=== PATIENT | female | born 1960 | race African-American/Black ===

== ENCOUNTER 2017-01-04 21:01 | Emergency (ER) | payer OTHER ==
[~2017-01-04] VITALS: Ht 162.6 cm; Wt 88.9 kg
[~2017-01-04 21:01] MED LIST: AMLO10TA2 PO; LEVO125T PO; LEVO150T PO; LEVO750T31 PO; LISI40TA PO; OXYB5TAB PO; PANT40TA5 PO
[2017-01-04 22:26] VITALS: BP 152/94
--- NOTE | 2017-01-04 22:33 | RAD ---
CT HEAD AND CERVICAL SPINE WO dated 01/04/2017 9:40 PM History: Fall one day ago, headache, neck pain Technique: Noncontrast CT imaging was performed of the head and cervical spine. Multiplanar reconstruction images are submitted. Exposure: One or more of the following individualized dose reduction techniques were utilized for this examination: 1. Automated exposure control 2. Adjustment of the mA and/or kV according to patient size 3. Use of iterative reconstruction technique. Head CT Comparison: None Findings: There is some motion degradation. No acute extra-axial or parenchymal hemorrhage is identified. There is no significant intra-axial mass effect, midline shift, or extra-axial fluid collection. The jenkins-white differentiation of the major vascular territories is preserved. The ventricles, sulci, and cisterns are within normal limits in size and configuration. The mastoid air cells and the visualized paranasal sinuses are aerated. There is no significant focal calvarial abnormality. Impression: 1. No convincing acute intracranial abnormality is identified. Cervical spine CT Comparison: None Findings: No acute cervical spine fracture is identified. Vertebral body stature and AP alignment are within normal limits. Atlanto-axial distance is within normal limits. There is appropriate alignment of lateral masses of C1 relative to C2. Occipital condylar-C1 relationship is maintained. Impression: 1. No acute cervical spine fracture is identified. Electronically signed by: Edmundo Noble MD (01/04/2017 10:29 PM)
--- NOTE | 2017-01-04 23:09 | PHYS DOC ---
Past Medical History Past Medical History: Diabetes-Type II, GERD, Hypertension, Hypothyroid Past Surgical History: , Hysterectomy, Other Additional Past Surgical Histo: lap band Alcohol Use: None Drug Use: None Adult General Chief Complaint Chief Complaint: MECHANICAL FALL HPI HPI Patient is a 56 year old female who presents with pain after a fall. States yesterday afternoon she experienced mechanical fall after slipping on a bag of soil. She fell backwards hitting her head on the ground with brief loss of consciousness. She now complains of headache, neck pain, right shoulder & right forearm pain. She is right handed. Denies vision changes, vomiting, extremity numbness/weakness. Denies use of blood thinners. No syncope as contributing factor in fall. PCP is Dr. Haywood. Review of Systems Review of Systems Constitutional: Denies fever or chills Eyes: Denies change in visual acuity HENT: Denies nasal congestion or sore throat Respiratory: Denies cough or shortness of breath Cardiovascular: Denies chest pain or edema GI: Denies abdominal pain, nausea, vomiting Musculoskeletal: Denies back pain, reports upper extremity pain & neck pain Integument: Denies rash or skin lesions Neurologic: Reports headache, denies focal weakness or sensory changes Allergies Allergies Allergies Coded Allergies Type Severity Reaction Last Updated Verified No Known Drug Allergies 08/26/13 No Physical Exam Physical Exam Constitutional: obese, no acute distress, non-toxic appearance. HENT: Normocephalic, atraumatic, bilateral external ears normal, oropharynx moist, nose normal. Eyes: PERRLA, EOMI, conjunctiva normal, no discharge. Neck: supple, no stridor. +midline c-spine tenderness C5-C7 no step offs Cardiovascular: RRR, no murmurs, no edema. Lungs & Thorax: LCTAB, no wheezing, no respiratory distress. Abdomen: soft, nontender, nondistended. Skin: Warm, dry, no erythema, no rash. Back: No thoracic or lumbar spinal tenderness. Extremities: RUE generalized shoulder & forearm tenderness without deformity, no elbow or wrist tenderness, normal ROM at shoulder, elbow, wrist, radial pulse 2+, axillary nerve sensation intact, radial/median/ulnar nerve sensory & motor function intact. Neurologic: Alert and oriented X 3, CN2-12 grossly intact, symmetric strength/ sensation to UE & LE, no focal deficits noted. Psychologic: Affect normal, judgement normal, mood normal. Current Patient Data Vital Signs Vital Signs Date Time Temp Pulse Resp B/P (MAP) Pulse Ox O2 Delivery O2 Flow Rate FiO2 01/04/17 22:26 86 16 152/94 (113) 96 Room Air 01/04/17 21:10 98.9 98.9 EKG EKG [] Radiology/Procedures Radiology/Procedures XR R forearm: interpreted by me: no fracture or dislocation XR R shoulder: interpreted by me: no fracture or dislocation PROCEDURE: CT HEAD AND CERVICAL SPINE WO CT HEAD AND CERVICAL SPINE WO dated 01/04/2017 9:40 PM History: Fall one day ago, headache, neck pain Technique: Noncontrast CT imaging was performed of the head and cervical spine. Multiplanar reconstruction images are submitted. Exposure: One or more of the following individualized dose reduction techniques were utilized for this examination: 1. Automated exposure control 2. Adjustment of the mA and/or kV according to patient size 3. Use of iterative reconstruction technique. Head CT Comparison: None Findings: There is some motion degradation. No acute extra-axial or parenchymal hemorrhage is identified. There is no significant intra-axial mass effect, midline shift, or extra-axial fluid collection. The jenkins-white differentiation of the major vascular territories is preserved. The ventricles, sulci, and cisterns are within normal limits in size and configuration. The mastoid air cells and the visualized paranasal sinuses are aerated. There is no significant focal calvarial abnormality. Impression: 1. No convincing acute intracranial abnormality is identified. Cervical spine CT Comparison: None Findings: No acute cervical spine fracture is identified. Vertebral body stature and AP alignment are within normal limits. Atlanto-axial distance is within normal limits. There is appropriate alignment of lateral masses of C1 relative to C2. Occipital condylar-C1 relationship is maintained. Impression: 1. No acute cervical spine fracture is identified. Electronically signed by: Ciera Preciado MD (01/04/2017 10:29 PM) DICTATED and SIGNED BY: CIERA PRECIADO MD DATE: 01/04/17 222[] Course & Med Decision Making Course & Med Decision Making Pertinent Labs and Imaging studies reviewed. (See chart for details) The patient presents with pain after a mechanical fall. She had neck tenderness , c-collar placed. She declined pain meds. Imaging shows no serious injury. C -collar clinically cleared by me. She was comforted by results & wanted to go home. Recommend tylenol or ibuprofen for pain, use ice packs or heating pad, do range of motion exercises. Follow up with PCP in 2-3 days if not improving. Come back for altered mental status, focal neuro deficit, ataxia or dysphasia , uncontrolled vomiting, any otherwise worsening condition. Discharged home in stable condition. [] Dragon Disclaimer Dragon Disclaimer This electronic medical record was generated, in whole or in part, using a voice recognition dictation system. Departure Departure Impression: Primary Impression: Head injury Additional Impression: Upper extremity pain Disposition: HOME, SELF-CARE Condition: STABLE Referrals: REYNOLD HAYWOOD MD (PCP) Patient Instructions: Head Injury, Adult, [id number] Additional Instructions: You were seen in the emergency department today for injuries after a fall. Tests here did not show any serious injury. Please rest, apply ice packs, make sure to move shoulder to prevent frozen joint. Take Tylenol or ibuprofen as needed for pain. Follow-up with primary care physician in 2-3 days if not improving. Return to the emergency department for confusion, difficulty walking or talking, uncontrolled vomiting, numbness or weakness in arms or legs, any otherwise worsening condition. Problem Qualifiers ADOLPH MORTON MD January 04, 2017 23:09
--- NOTE | 2017-01-05 08:01 | RAD ---
Indication fall. Pain. AP and lateral views of the right forearm were obtained. No bony abnormality is seen.
--- NOTE | 2017-01-05 08:03 | RAD ---
Indication fall, pain. Internally and externally rotated views of the right shoulder as well as a Y view were obtained. There are some degenerative changes at the AC joint. No fracture or acute finding is seen. IMPRESSION: No acute bony finding
== END 2017-01-04 23:27 | disposition home or self-care (01) ==
LOC: ER 21:01
DX: S09.90XA Unspecified injury of head, initial encounter (principal); M79.631 Pain in right forearm; M25.511 Pain in right shoulder; E11.9 Type 2 diabetes mellitus without complications; K21.9 Gastro-esophageal reflux disease without esophagitis; I10 Essential (primary) hypertension; E03.9 Hypothyroidism, unspecified; W01.198A Fall on same level from slipping, tripping and stumbling with subsequent striking against other object, initial encounter; Y93.89 Activity, other specified; Y92.89 Other specified places as the place of occurrence of the external cause; Y99.8 Other external cause status
CPT/HCPCS: 70450; 72125; 73030; 73090; 99284-25

== ENCOUNTER → 2017-05-31 | Outpatient (CLI) | payer OTHER ==
--- NOTE | 2017-06-01 09:25 | SLEEP ---
DATE OF STUDY: 05/31/2017 ATTENDING PHYSICIAN: Reynold Montoya MD. The patient is 57 years old who weighs 195 pounds with a BMI of 33. The patient's Berkey score was 5. A split night study was performed at [facility]. During the night study, the patient spent 429 minutes in bed and slept for 381 minutes with a sleep efficiency of 89%. Sleep latency was 9 minutes with a REM latency of 101 minutes. Overall, sleep architecture showed increased stage I sleep, normal stage II sleep, normal slow wave and reduced REM sleep. During the initial diagnostic portion of the study, the patient slept for 144 minutes. During this time, there were 5 obstructive apneas, 3 mixed and no central apneas. There were 99 hypopneas. The patient's apnea-hypopnea index was 45 per hour, supine index 25 per hour and a REM index of 94 per hour. EKG monitoring revealed normal sinus rhythm, average heart rate was 78 beats per minute. No sustained arrhythmias were observed. Nocturnal oximetry study revealed a mean oxygen saturation of 98% with the lowest of 72%. 16% of time, oxygen saturation remained between 80% and 89%. PLMs were seen at index of 7 per hour and 1 per hour caused EEG arousals. The patient met the criteria for CPAP initiation. It was started at 5 cm of water, titrated up to 14 cm of water. At the final pressure, the patient spent 47 minutes. The patient had supine as well as REM sleep. The patient's AHI was reduced to 1 per hour and oxygen saturation remained above 93%. The patient used medium size nasal pillows. IMPRESSION: 1. Severe sleep apnea-hypopnea syndrome with an AHI of 45 per hour. 2. Nocturnal hypoxia secondary to obstructive sleep apnea, but resolved with CPAP. 3. No clinically significant PLMs. RECOMMENDATIONS: 1. CPAP at 14 cm of water completely eliminated the patient's sleep apnea and should be used on a nightly basis. 2. Follow up in 4-6 weeks to assess compliance with CPAP and to document clinical improvement. 3. Weight loss is strongly advised. 4. Avoid CRUSHER SETTER depressants. 5. Caution regarding driving until symptoms of sleep apnea resolve with the use of CPAP. CHRISSIE OCHOA MD DR: JOAN/santino JOB#: [id number] / [id number] REYNOLD Cerda MD
== END | disposition home or self-care (01) ==
LOC: RT 18:37
PROVIDERS: ATTEND Internal Medicine
DX: G47.33 Obstructive sleep apnea (adult) (pediatric) (principal)
CPT/HCPCS: 95810

== ENCOUNTER → 2018-06-21 | Outpatient (CLI) | payer OTHER ==
[~2018-06-21] MED LIST changes: -AMLO10TA2 PO; +AMLO10TA6 PO; +LISI-130 PO; -LISI40TA PO
--- NOTE | 2018-06-21 09:22 | RAD ---
Examination: THYROID ULTRASOUND History: ENLARGED THYROID Comparison/Correlation: None Findings: Thyroid ultrasound exam was performed. Right thyroid lobe measures 4.1 cm x 1.3 cm x 1.5 cm. Left thyroid lobe measures 2.1 cm x 1 cm x 1.2 cm. Normal flow involving the thyroid gland is evident on color Doppler imaging. There is no mass or suspicious cyst. Thyroid isthmus measures 0.4 cm anteroposterior. Echotexture of the thyroid gland is normal. Impression: Normal thyroid ultrasound exam. Electronically signed by: Benny Boone MD (06/21/2018 9:19 AM) [facility]
--- NOTE | 2018-06-21 13:32 | RAD ---
DATE: 06/21/2018 EXAM: MAMMO BETO SCREENING BILATERAL HISTORY: Routine screening. Benign left breast biopsies in the past. COMPARISON: 10/30/2009 screen mammographic exam This study was interpreted with the benefit of Computerized Aided Detection (CAD). Breast Density: SCATTERED The breast parenchyma shows scattered fibroglandular densities. Breast parenchyma level B. FINDINGS: Benign axillary lymph nodes are present bilaterally. No suspicious calcification clusters or distortion. No mass lesions. IMPRESSION: Normal BI-RADS CATEGORY: 2 BENIGN FINDING(S) RECOMMENDED FOLLOW-UP: 12M 12 MONTH FOLLOW-UP PQRS compliance statement: Patient information was entered into a reminder system with a target due date in 1 year for the next mammogram. Mammography is a sensitive method for finding small breast cancers, but it does not detect them all and is not a substitute for careful clinical examination. A negative mammogram does not negate a clinically suspicious finding and should not result in delay in biopsying a clinically suspicious abnormality. "Our facility is accredited by the [employer] Mammography Program."
== END | disposition home or self-care (01) ==
LOC: US 07:39
PROVIDERS: ATTEND Family Medicine
DX: Z12.31 Encounter for screening mammogram for malignant neoplasm of breast (principal); E04.8 Other specified nontoxic goiter
CPT/HCPCS: 76536; 77063; 77067

== ENCOUNTER → 2019-10-25 | Outpatient (CLI) | payer OTHER ==
[~2019-10-25] MED LIST changes: -AMLO10TA6 PO; +AMLO10TA8 PO; +OXYB-36 PO; -OXYB5TAB PO; -PANT40TA5 PO; +PANT40TA77 PO
[2019-10-25 08:48] LABS: HEMATOCRIT 35.2 % (36.0-47.0); HEMOGLOBIN 11.4 g/dL (12.0-15.5); RED BLOOD COUNT 4.53 x10^6/uL (3.50-5.40); RED CELL DISTRIBUTION WIDTH 15.6 % (11.5-14.5); WHITE BLOOD COUNT 5.1 x10^3/uL (4.0-11.0)
[2019-10-25 09:17] LABS: ALBUMIN 3.6 g/dL (3.4-5.0); ALBUMIN/GLOBULIN RATIO 0.8 (1.0-1.7); CHOLESTEROL/HDL RATIO 3.1; GFR 69.1; TOTAL BILIRUBIN 0.4 mg/dL (0.2-1.0); TOTAL PROTEIN 7.9 g/dL (6.4-8.2)
[2019-10-25 09:19] LABS: FREE T4 0.92 ng/dL (0.76-1.46); THYROID STIM HORMONE (TSH) 6.879 uIU/mL (0.358-3.74)
[2019-10-25 20:08] LABS: HEMOGLOBIN A1C 6.1 % (4.8-5.6)
== END | disposition home or self-care (01) ==
LOC: LAB 08:16
PROVIDERS: ATTEND Nurse Practitioner Gerontology
DX: E78.01 Familial hypercholesterolemia (principal); I10 Essential (primary) hypertension; E03.9 Hypothyroidism, unspecified; E11.40 Type 2 diabetes mellitus with diabetic neuropathy, unspecified
CPT/HCPCS: 36415; 80053; 80061; 83036; 84439; 84443; 85027

== ENCOUNTER → 2020-01-19 | Outpatient (CLI) | payer OTHER | END | disposition home or self-care (01) | LOC: LAB 16:16 | PROVIDERS: ATTEND Internal Medicine Pulmonary Disease | DX: Z03.818 Encounter for observation for suspected exposure to other biological agents ruled out (principal) | CPT/HCPCS: 36415; U0003 ==

== ENCOUNTER → 2020-07-09 | Outpatient (CLI) | payer OTHER ==
[~2020-07-09] MED LIST changes: +AMLO-187 PO; -AMLO10TA8 PO
== END ==
LOC: LAB 08:56
PROVIDERS: ATTEND Internal Medicine Pulmonary Disease
DX: U07.1 COVID-19 (principal); R09.81 Nasal congestion; R68.89 Other general symptoms and signs
CPT/HCPCS: U0003

== ENCOUNTER 2020-11-20 10:39 | Emergency (ER) | payer OTHER ==
[~2020-11-20] VITALS: Ht 160 cm; Wt 89.0 kg
[2020-11-20] MEDS: ONDANSETRON PF 4 MG/2 ML VIAL. IVP ONE (11:26)
[2020-11-20] MEDS: IV NORMAL SALINE 1000ML BAG 1,000 ML IV ONE (11:26)
[2020-11-20] MEDS: FAMOTIDINE 20 MG/2 ML VIAL IVP ONE (11:27)
--- NOTE | 2020-11-20 11:28 | EKG ---
[facility] [address] [place] [address] Test Date: 2020-11-20 Test Time: 11:22:06 Pat Name: RAI ALONSO Department: Room: Gender: F [employer] Supervisor: : [id number] Requested By: BARBARA GRIGSBY Order Number: [id number] Reading MD: Measurements Intervals [place] Rate: 96 P: 56 PA: 138 QRS: 44 QRSD: 82 T: 34 QT: 342 QTc: 433 Interpretive Statements SINUS RHYTHM NORMAL ECG RI6.02 No previous ECG available for comparison
[2020-11-20 11:32] LABS: BILIRUBIN,URINE NEGATIVE (NEG); CLARITY,URINE CLEAR; COLOR,URINE YELLOW; NITRITE,URINE NEGATIVE (NEG); PROTEIN,URINE NEGATIVE (NEG-TRACE); UROBILINOGEN,URINE 0.2 mg/dL (0.2 mg/dL)
[2020-11-20 11:34] LABS: BASO # 0.1 x10^3/uL (0.0-0.2); BASO % 1 % (0-3); EOS # 0.1 x10^3/uL (0.0-0.7); EOS % 1 % (0-3); HEMATOCRIT 35.5 % (36.0-47.0); HEMOGLOBIN 11.5 g/dL (12.0-15.5); LYMPH # 1.5 x10^3/uL (1.0-4.8); LYMPH % 15 % (24-48); MEAN CORPUSCULAR HEMOGLOBIN 25 pg (25-35); MEAN CORPUSCULAR HGB CONC 32 g/dL (31-37); MEAN CORPUSCULAR VOLUME 78 fL (79-100); MONO # 0.7 x10^3/uL (0.0-1.1); MONO % 7 % (0-9); NEUT # 7.8 x10^3/uL (1.8-7.7); NEUT % 76 % (31-73); PLATELET COUNT 296 x10^3/uL (140-400); RED BLOOD COUNT 4.53 x10^6/uL (3.50-5.40); RED CELL DISTRIBUTION WIDTH 14.5 % (11.5-14.5); WHITE BLOOD COUNT 10.2 x10^3/uL (4.0-11.0)
[2020-11-20 11:44] LABS: CALCIUM 9.3 mg/dL (8.5-10.1); GFR 68.9; POTASSIUM 3.8 mmol/L (3.5-5.1)
[2020-11-20 11:51] LABS: ALBUMIN 3.6 g/dL (3.4-5.0); ALBUMIN/GLOBULIN RATIO 0.8 (1.0-1.7); MAGNESIUM 2.1 mg/dL (1.8-2.4); TOTAL BILIRUBIN 0.3 mg/dL (0.2-1.0); TOTAL PROTEIN 8.1 g/dL (6.4-8.2)
[2020-11-20 12:01] LABS: BACTERIA,URINE 0 /HPF (0-FEW); RBC,URINE 0 /HPF (0-2); WBC,URINE 0 /HPF (0-4)
[2020-11-20] MEDS: IOHEXOL 350 MG/ML 100 ML VIAL. IV ONE (12:13)
--- NOTE | 2020-11-20 12:56 | RAD ---
EXAM: CT CHEST, ABDOMEN, AND PELVIS WITHOUT CONTRAST INDICATION: Coughing up blood, rectal bleeding COMPARISON: None TECHNIQUE: Helical CT imaging performed of the chest, abdomen and pelvis without the use of intraveno us contrast. Sagittal and coronal reformats were obtained. One or more of the following individualized dose reduction techniques were utilized for this examinat ion: 1. Automated exposure control 2. Adjustment of the mA and/or kV according to patient size 3. Use of iterative reconstruction technique. FINDINGS: CHEST: Thyroid gland and thoracic inlet: Thyroid gland is heterogeneous. Heart and great vessels: The heart is normal in size. No pericardial effusion. Thoracic aorta is norm al in caliber. The pulmonary arteries are clear. Mediastinum and wai: No mediastinal or hilar lymphadenopathy. There is fluid in the esophagus. Small hiatal hernia. Lungs and pleura: A few groundglass opacities and tree-in-bud nodules in the upper lobes. Motion nadir fact in the lung bases. No pleural effusion. Chest wall and axillae: No axillary lymphadenopathy. Bones: No acute osseous abnormality. ABDOMEN AND PELVIS: Liver: No focal lesion Gallbladder/Biliary Tree: Normal. Pancreas: Normal. Spleen: Normal. Adrenal Glands: Normal. Kidneys/Ureters/Bladder: There is right nephrolithiasis. No hydronephrosis. Kidneys enhance symmetric ally. Ureters and bladder are normal. Reproductive Organs: Uterus is surgically absent. No adnexal mass. Stomach, small bowel, and colon: Gastric lap band is in place and unchanged in orientation. No small bowel obstruction. There is a hyperattenuating nodule or eccentric wall thickening in the cecum (imag e 51, series 5; image 22, series 9) measuring approximately 1 x 1 cm. Vasculature: Abdominal aorta is normal in caliber. Mild calcified aortic atherosclerosis. Lymph Nodes: Small mesenteric lymph nodes with surrounding slightly ariana mesentery. Peritoneum and retroperitoneum: No free fluid or free air. Bones: No acute osseous abnormality. IMPRESSION: 1. No acute pulmonary embolism. 2. re are few small groundglass opacities and tree-in-bud nodules in the upper lobes, likely infectio us or inflammatory. Consider follow-up CT to ensure resolution after treatment. 3.1 cm hyperdense mural nodule or focal thickening in the cecum. Correlate with colonoscopy. 4. Right nephrolithiasis. 5. Gastric lap band. Small hiatal hernia. Fluid in the esophagus. 6. Mesenteric lymph nodes with ariana mesentery. Nonspecific and could be due to mesenteric panniculit is, mesenteric edema or sequela of prior surgery. Electronically signed by: Dinorah Johnson MD (11/20/2020 12:53 PM) [id number]
[2020-11-20 14:09] LABS: FECAL OB PT NEGATIVE (NEG)
[2020-11-20 14:50] VITALS: BP 148/93
--- NOTE | 2020-11-20 15:15 | PHYS DOC ---
Past Medical History Past Medical History: Diabetes-Type II, GERD, Hypertension, Hypothyroid (BARBARA GRIGSBY CURING OV[employer] TENDER) Past Surgical History: , Hysterectomy, Other Additional Past Surgical Histo: lap band (BARBARA GRIGSBY [employer]ING [employer]ENDER) Smoking Status: Former Smoker Alcohol Use: None Drug Use: None (BARBARA GRIGSBY [employer]ING [employer] TENDER) General Adult EDM: Chief Complaint: MULTIPLE COMPLAINTS HPI: HPI: Patient is a 60 year old female with a history of diabetes type 2, hypertension, high cholesterol, acid reflux, stomach ulcer, who presents to the ED today complaining of coughing up blood one time today as well as blood in her stool X1 today. Patient denies any abdominal pain, nausea, vomiting. Denies any chest pain, shortness of breath. She states she received all her doses of more than a Covid vaccine recently. She is also complaining of 7 out of 10 sharp intermittent pain between her shoulder blades since this morning. Denies any injuries. Denies anything specifically exacerbating or relieving her pain. Patient denies taking any blood thinners or NSAIDs (BARBARA GRIGSBY [employer]ING OV[employer] TENDER) Review of Systems: Review of Systems: Constitutional: Denies fever or chills. [] Eyes: Denies change in visual acuity. [] HENT: Denies nasal congestion or sore throat. [] Respiratory: Reports coughing up blood. Denies cough or shortness of breath. [] Cardiovascular: Denies chest pain or edema. [] GI: Reports bloody stool. Denies abdominal pain, nausea, vomiting, bloody stools : Denies dysuria. [] Musculoskeletal: Reports pain between her shoulder blades. Denies back pain or joint pain. [] Integument: Denies rash. [] Neurologic: Denies headache, focal weakness or sensory changes. [] Psychiatric: Denies depression or anxiety. [] (BARBARA GRIGSBY [employer]ING [employer] TENDER) Heart Score: C/O Chest Pain: N/A Risk Factors: Risk Factors: DM, Current or recent (<one month) smoker, HTN, HLP, family history of CAD, obesity. Risk Scores: Score 0 - 3: 2.5% MACE over next 6 weeks - Discharge Home Score 4 - 6: 20.3% MACE over next 6 weeks - Admit for Clinical Observation Score 7 - 10: 72.7% MACE over next 6 weeks - Early Invasive Strategies (BARBARA GRIGSBY [employer]ING [employer] TENDER) Current Medications: Current Medications Medications (Trade) Dose Ordered Sig/Daniel Start Time Stop Time Status Last Admin Dose Admin Famotidine (Pepcid Vial) 20 mg 1X ONCE 11/20/20 11:15 11/20/20 11:16 DC 11/20/20 11:27 20 MG Iohexol (Omnipaque 350 Mg/ml) 100 ml 1X ONCE 11/20/20 12:00 11/20/20 12:01 DC 11/20/20 12:13 100 ML Ondansetron HCl (Zofran) 4 mg 1X ONCE 11/20/20 11:15 11/20/20 11:16 DC 11/20/20 11:26 4 MG Sodium Chloride 1,000 ml @ 1,000 mls/hr 1X ONCE 11/20/20 11:15 11/20/20 12:14 DC 11/20/20 11:26 1,000 MLS/HR (BARBARA GRIGSBY [employer]ING [employer]ENDER) Allergies: Allergies: Allergies Coded Allergies Type Severity Reaction Last Updated Verified No Known Drug Allergies 08/26/13 No (BARBARA GRIGSBY [employer]ING [employer]ENDER) Physical Exam: PE: Constitutional: Well developed, well nourished, no acute distress, non-toxic appearance. [] HENT: Normocephalic, atraumatic, bilateral external ears normal, oropharynx moist, no oral exudates, nose normal. [] Eyes: PERRLA, EOMI, conjunctiva normal, no discharge. [] Neck: Normal range of motion, no tenderness, supple, no stridor. [] Cardiovascular:Heart rate regular rhythm, no murmur [] Lungs & Thorax: Bilateral breath sounds clear to auscultation [] Abdomen: Bowel sounds normal, soft, no tenderness, no masses, no pulsatile masses. [] Skin: Warm, dry, no erythema, no rash. [] Back: No tenderness, no CVA tenderness. [] Extremities: No tenderness, no cyanosis, no clubbing, ROM intact, no edema. [] Neurologic: Alert and oriented X 3, normal motor function, normal sensory function, no focal deficits noted. [] Psychologic: Affect normal, judgement normal, mood normal. [] (BARBARA GRIGSBY [employer]ING [employer]ENDER) Current Patient Data: Labs: Laboratory Tests Test 11/20/20 11:00 11/20/20 11:15 11/20/20 13:55 11/20/20 13:57 Urine Collection Type Unknown Urine Color Yellow Urine Clarity Clear Urine pH 5.0 (<5.0-8.0) Urine Specific [place] 1.015 (1.000-1.030) Urine Protein Negative mg/dL (NEG-TRACE) Urine Glucose (UA) Negative mg/dL (NEG) Urine Ketones (Stick) Negative mg/dL (NEG) Urine Blood Negative (NEG) Urine Nitrite Negative (NEG) Urine Bilirubin Negative (NEG) Urine Urobilinogen Dipstick 0.2 mg/dL (0.2 mg/dL) Urine Leukocyte Esterase Negative (NEG) Urine RBC 0 /HPF (0-2) Urine WBC 0 /HPF (0-4) Urine Squamous Epithelial Cells Few /LPF Urine Bacteria 0 /HPF (0-FEW) White Blood Count 10.2 x10^3/uL (4.0-11.0) Red Blood Count 4.53 x10^6/uL (3.50-5.40) Hemoglobin 11.5 g/dL (12.0-15.5) L Hematocrit 35.5 % (36.0-47.0) L Mean Corpuscular Volume 78 fL (79-100) L Mean Corpuscular Hemoglobin 25 pg (25-35) Mean Corpuscular Hemoglobin Concent 32 g/dL (31-37) Red Cell Distribution Width 14.5 % (11.5-14.5) Platelet Count 296 x10^3/uL (140-400) Neutrophils (%) (Auto) 76 % (31-73) H Lymphocytes (%) (Auto) 15 % (24-48) L Monocytes (%) (Auto) 7 % (0-9) Eosinophils (%) (Auto) 1 % (0-3) Basophils (%) (Auto) 1 % (0-3) Neutrophils # (Auto) 7.8 x10^3/uL (1.8-7.7) H Lymphocytes # (Auto) 1.5 x10^3/uL (1.0-4.8) Monocytes # (Auto) 0.7 x10^3/uL (0.0-1.1) Eosinophils # (Auto) 0.1 x10^3/uL (0.0-0.7) Basophils # (Auto) 0.1 x10^3/uL (0.0-0.2) Sodium Level 148 mmol/L (136-145) H Potassium Level 3.8 mmol/L (3.5-5.1) Chloride Level 107 mmol/L (98-107) Carbon Dioxide Level 27 mmol/L (21-32) Anion Gap 14 (6-14) Blood Urea Nitrogen 13 mg/dL (7-20) Creatinine 1.0 mg/dL (0.6-1.0) Estimated GFR (Cockcroft-Gault) 68.9 BUN/Creatinine Ratio 13 (6-20) Glucose Level 87 mg/dL (70-99) Calcium Level 9.3 mg/dL (8.5-10.1) Magnesium Level 2.1 mg/dL (1.8-2.4) Total Bilirubin 0.3 mg/dL (0.2-1.0) Aspartate Amino Transferase (AST) 18 U/L (15-37) Alanine Aminotransferase (ALT) 23 U/L (14-59) Alkaline Phosphatase 86 U/L (46-116) Troponin I Quantitative < 0.017 ng/mL (0.000-0.055) < 0.017 ng/mL (0.000-0.055) NV-Tey-M-Type Natriuretic Peptide 75 pg/mL (0-124) Total Protein 8.1 g/dL (6.4-8.2) Albumin 3.6 g/dL (3.4-5.0) Albumin/Globulin Ratio 0.8 (1.0-1.7) L Lipase 172 U/L (73-393) Stool Occult Blood Negative (NEG) Laboratory Tests 11/20/20 11:15 Laboratory Tests 11/20/20 11:15 Vital Signs: Vital Signs Date Time Temp Pulse Resp B/P (MAP) Pulse Ox O2 Delivery O2 Flow Rate FiO2 11/20/20 10:51 97.9 104 18 183/105 (131) 99 Room Air 97.9 (BARBARA GRIGSBY APRN) EKG: EK interpreted by Dr. Montes De Oca sinus rhythm heart rate 96 no STEMI [] (BARBARA GRIGSBY APRN) Radiology/Procedures: Radiology/Procedures: []PROCEDURE: CT ANGIO CHEST W ABD PEL W/ EXAM: CT CHEST, ABDOMEN, AND PELVIS WITHOUT CONTRAST INDICATION: Coughing up blood, rectal bleeding COMPARISON: None TECHNIQUE: Helical CT imaging performed of the chest, abdomen and pelvis without the use of intravenous contrast. Sagittal and coronal reformats were obtained. One or more of the following individualized dose reduction techniques were utilized for this examination: 1. Automated exposure control 2. Adjustment of the mA and/or kV according to patient size 3. Use of iterative reconstruction technique. FINDINGS: CHEST: Thyroid gland and thoracic inlet: Thyroid gland is heterogeneous. Heart and great vessels: The heart is normal in size. No pericardial effusion. Thoracic aorta is normal in caliber. The pulmonary arteries are clear. Mediastinum and wai: No mediastinal or hilar lymphadenopathy. There is fluid in the esophagus. Small hiatal hernia. Lungs and pleura: A few groundglass opacities and tree-in-bud nodules in the upper lobes. Motion artifact in the lung bases. No pleural effusion. Chest wall and axillae: No axillary lymphadenopathy. Bones: No acute osseous abnormality. ABDOMEN AND PELVIS: Liver: No focal lesion Gallbladder/Biliary Tree: Normal. Pancreas: Normal. Spleen: Normal. Adrenal Glands: Normal. Kidneys/Ureters/Bladder: There is right nephrolithiasis. No hydronephrosis. Kidneys enhance symmetrically. Ureters and bladder are normal. Reproductive Organs: Uterus is surgically absent. No adnexal mass. Stomach, small bowel, and colon: Gastric lap band is in place and unchanged in orientation. No small bowel obstruction. There is a hyperattenuating nodule or eccentric wall thickening in the cecum (image 51, series 5; image 22, series 9) measuring approximately 1 x 1 cm. Vasculature: Abdominal aorta is normal in caliber. Mild calcified aortic atherosclerosis. Lymph Nodes: Small mesenteric lymph nodes with surrounding slightly ariana mesentery. Peritoneum and retroperitoneum: No free fluid or free air. Bones: No acute osseous abnormality. IMPRESSION: 1. No acute pulmonary embolism. 2. re are few small groundglass opacities and tree-in-bud nodules in the upper lobes, likely infectious or inflammatory. Consider follow-up CT to ensure resolution after treatment. 3.1 cm hyperdense mural nodule or focal thickening in the cecum. Correlate with colonoscopy. 4. Right nephrolithiasis. 5. Gastric lap band. Small hiatal hernia. Fluid in the esophagus. 6. Mesenteric lymph nodes with ariana mesentery. Nonspecific and could be due to mesenteric panniculitis, mesenteric edema or sequela of prior surgery. Electronically signed by: Dinorah Johnson MD (11/20/2020 12:53 PM) [id number] DICTATED and SIGNED BY: DINORAH JOHNSON MD DATE: 11/20/20 [id number] (BARBARA GRIGSBY APRN) Course & Med Decision Making: Course & Med Decision Making Pertinent Labs and Imaging studies reviewed. (See chart for details) This is a 60-year-old female patient presented to the ED today with multiple complaints. Patient is complaining of one episode of coughing up blood as well as 1 episode of rectal bleed that occurred today. Denies any abdominal pain nausea vomiting. Is also complaining of pain between her shoulder blades. Her EKG is negative, CBC with a normal WBC, hemoglobin 11.5 with hematocrit of 35.5, this is her baseline. Hemoccult is negative. UA negative for infection. CT of the abdomen and pelvic is negative for PE, noted for right nephrolithiasis, noted for hyperdense mural nodule or focal thickening in the cecum. Correlate with colonoscopy. Also noted for few small groundglass opacities and tree-in-bud nodules in the upper lobes, likely infectious or inflammatory-patient reports only one episode of coughing up blood. At this point we will not put her on any antibiotics. Her white count is normal, she has no fever. Patient was discharged to home. Follow-up with PCP and GI. Provided return precautions (BARBARA GRIGSBY APRN) Dragon Disclaimer: Dragon Disclaimer: This electronic medical record was generated, in whole or in part, using a voice recognition dictation system. (BARBARA GRIGSBY APRN) Departure Departure Impression: Primary Impression: Rectal bleeding Additional Impression: Hemoptysis Disposition: HOME / SELF CARE / HOMELESS Condition: STABLE Referrals: PAUL LUNA MD (PCP) follow up next week Patient Instructions: Hemoptysis, Rectal Bleeding, [id number] Additional Instructions: You were evaluated in the emergency room, please follow-up with your primary care doctor, come back to the ED at any point symptoms worsen. Attending Signature Attending Signature I have participated in the care of this patient and I have reviewed and agree with all pertinent clinical information above including history, exam, and recommendations. (SAMY MONTES DE OCA DO) BARBARA GRIGSBY [employer]ING [employer] TENDER Nov 20, 2020 15:15 SAMY MONTES DE OCA DO Nov 20, 2020 19:25
== END 2020-11-20 15:23 | disposition home or self-care (01) ==
LOC: ER 10:39
DX: K62.5 Hemorrhage of anus and rectum (principal); R04.2 Hemoptysis; K21.9 Gastro-esophageal reflux disease without esophagitis; E11.9 Type 2 diabetes mellitus without complications; I10 Essential (primary) hypertension; E03.9 Hypothyroidism, unspecified; E78.00 Pure hypercholesterolemia, unspecified; Z87.891 Personal history of nicotine dependence; Z90.710 Acquired absence of both cervix and uterus
CPT/HCPCS: 36415; 71275; 74177; 80053; 81001; 82274; 83690; 83735; 83880; 84484; 85025; 93005; 96361; 96374; 96375; 99285; J2405; J3490; J7030; Q9967

== ENCOUNTER → 2020-12-16 | Day surgery (SDC) | payer OTHER ==
[~2020-12-16] MED LIST changes: +IV RINGERS,LACTATED 1000ML 1,000 ML IV SCH; +PROPOFOL 10 MG/ML (20ML) VIAL. IV ONE
--- NOTE | 2020-12-16 15:33 | PDOC4 ---
PROCEDURE Procedure Colonoscopy with biopsies/polypectomy, EGD/biopsies Indication: Epigastric pain/screening. Meds: per anesthesia Findings: PENELOPE: normal --'Scope advanced to cecum. Prep adequate. Mucosa normal. 3, 3-5mm polyps, cecum to ascending, biopsied off. 10-12 mm polyp, cecum, snared. No other lesions noted. Retroflex normal. E--Healed reflux with ? Haider's 37-38cm. Biopsied. G--Mild antral erythema, biopsied taken. D--Normal to second portion. Tolerated well. IMP: Polyps GERD Haider's? REC: continue diet, meds. Await path. No ASA, NSAIDS for 2 weeks. F/u in 2 weeks. ROLA MARTINEZ MD December 16, 2020 15:33
[2020-12-16 15:43] VITALS: BP 119/79
== END | disposition home or self-care (01) ==
LOC: ENDOS 12:44
PROVIDERS: ATTEND Internal Medicine Gastroenterology
DX: Z12.11 Encounter for screening for malignant neoplasm of colon (principal); R10.13 Epigastric pain; K63.5 Polyp of colon; K63.89 Other specified diseases of intestine; K21.9 Gastro-esophageal reflux disease without esophagitis; E78.00 Pure hypercholesterolemia, unspecified; I10 Essential (primary) hypertension; E11.40 Type 2 diabetes mellitus with diabetic neuropathy, unspecified; G47.33 Obstructive sleep apnea (adult) (pediatric); E03.9 Hypothyroidism, unspecified; Z90.710 Acquired absence of both cervix and uterus; Z90.721 Acquired absence of ovaries, unilateral; Z98.891 History of uterine scar from previous surgery; Z98.890 Other specified postprocedural states; Z80.8 Family history of malignant neoplasm of other organs or systems; Z83.3 Family history of diabetes mellitus; Z87.01 Personal history of pneumonia (recurrent); Z82.49 Family history of ischemic heart disease and other diseases of the circulatory system; Z86.73 Personal history of transient ischemic attack (TIA), and cerebral infarction without residual deficits
CPT/HCPCS: 43239; 45380; 45385; 87426; J2704

== ENCOUNTER 2020-12-17 17:40 | Emergency (ER) | payer OTHER ==
[2020-12-16 15:43] VITALS: BP 119/79
[~2020-12-17] VITALS: Ht 162.6 cm; Wt 89.6 kg
[~2020-12-17 17:40] MED LIST changes: -IV RINGERS,LACTATED 1000ML 1,000 ML IV SCH; -PROPOFOL 10 MG/ML (20ML) VIAL. IV ONE
--- NOTE | 2020-12-17 18:24 | PHYS DOC ---
Past Medical History Past Medical History: Diabetes-Type II, GERD, Hypertension, Hypothyroid Past Surgical History: , Hysterectomy, Other Additional Past Surgical Histo: lap band Smoking Status: Former Smoker Alcohol Use: None Drug Use: None General Adult EDM: Chief Complaint: HEMATEMESIS/VOMITING BLOOD HPI: HPI: Patient is a 60-year-old female who presents for blood in stool. Reports this is a chronic issue, she just had an EGD and colonoscopy performed yesterday at our facility by Dr. Valles. Per operative report, it appears patient had numerous colon polyps removed and several biopsies performed during EGD with no reported complications. Patient reports today feeling at baseline health, admits slight sore throat from EGD otherwise asymptomatic. Reports while at work she had x1 episode of looser than usual stool that was accompanied by dark red blood. Quantifies this as less than 4 ounces. States she was able to work the remainder of her shift without issues and contacted GI office to review findings. She was advised by on-call nurse to present to ER for evaluation. On arrival, patient has no symptoms, no lightheadedness, dizziness, vision changes, chest pain, shortness of breath, abdominal ripping or tearing, no dysuria. She has not been using NSAIDs or alcohol use since procedure, has been compliant with all medications prescribed especially Protonix. More detailed operative report can be seen below: --'Scope advanced to cecum. Prep adequate. Mucosa normal. 3, 3-5mm polyps, cecum to ascending, biopsied off. 10-12 mm polyp, cecum, snared. No other lesions noted. Retroflex normal. E--Healed reflux with ? Haider's 37-38cm. Biopsied. G--Mild antral erythema, biopsied taken. D--Normal to second portion. Tolerated well. IMP: Polyps GERD Haider's? REC: continue diet, meds. Await path. No ASA, NSAIDS for 2 weeks. F/u in 2 weeks. Review of Systems: Review of Systems: Fourteen body systems of review of systems have been reviewed. See HPI for p ertinent positives and negative responses, other nuñez all other systems are negative, non-pertinent or non-contributory Heart Score: C/O Chest Pain: No HEART Score for Chest Pain: HEART Score for Chest Pain Response (Comments) Value History Slighlty/Non-Suspicious 0 Age >45 - < 65 1 Risk Factors 1 or 2 Risk Factors 1 Total 2 Risk Factors: Risk Factors: DM, Current or recent (<one month) smoker, HTN, HLP, family history of CAD, obesity. Risk Scores: Score 0 - 3: 2.5% MACE over next 6 weeks - Discharge Home Score 4 - 6: 20.3% MACE over next 6 weeks - Admit for Clinical Observation Score 7 - 10: 72.7% MACE over next 6 weeks - Early Invasive Strategies Allergies: Allergies: Allergies Coded Allergies Type Severity Reaction Last Updated Verified No Known Drug Allergies 12/16/20 No Physical Exam: PE: Constitutional: Well developed, well nourished, no acute distress, non-toxic appearance. HENT: Normocephalic, atraumatic, bilateral external ears normal, oropharynx moist, no oral exudates, nose normal. Eyes: PERRLA, EOMI, conjunctiva normal, no discharge. Neck: Normal range of motion, no tenderness, supple, no stridor. Cardiovascular: Heart rate regular, sinus rhythm, no murmurs rubs or gallops Lungs & Thorax: Bilateral breath sounds clear to auscultation Abdomen: Bowel sounds normal, soft, no tenderness, no masses, no pulsatile masses. Nonsurgical abdomen, no peritoneal signs Skin: Warm, dry, no erythema, no rash. Back: No tenderness, no CVA tenderness. Extremities: No tenderness, no cyanosis, no clubbing, ROM intact, no edema. Neurologic: Alert and oriented X 3, grossly normal motor & sensory function, no focal deficits noted. Psychologic: Affect normal, judgement normal, mood normal. Current Patient Data: Vital Signs: Vital Signs Date Time Temp Pulse Resp B/P (MAP) Pulse Ox O2 Delivery O2 Flow Rate FiO2 12/17/20 18:00 98.0 76 16 143/90 99 98.0 Vital Signs Date Time Temp Pulse Resp B/P (MAP) Pulse Ox O2 Delivery O2 Flow Rate FiO2 12/17/20 18:00 98.0 76 16 143/90 99 98.0 EKG: EKG: [] Radiology/Procedures: Radiology/Procedures: [] Course & Med Decision Making: Course & Med Decision Making Vital signs stable, HPI and physical exam nonconcerning for emergent or surgical findings I reviewed entirety of the operative report with patient in addition to symptoms. Discussed likely residual bleeding from snared polyp removal I discussed utility of further diagnostic work-up in ER setting. She is asymptomatic with normal vitals, joint decision made to defer lab work or other diagnostic studies at this time. Patient on appropriate therapy. 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 She is happy with this plan Strict return precautions were discussed with good understanding by patient, all questions and concerns patient and at bedside had were addressed prior to ER departure. Dragon Disclaimer: León Disclaimer: This electronic medical record was generated, in whole or in part, using a voice recognition dictation system. Departure Departure Impression: Primary Impression: Rectal bleeding Disposition: HOME / SELF CARE / HOMELESS Condition: STABLE Referrals: PAUL LUNA MD (PCP) Additional Instructions: As discussed prior to ER departure, you are likely experiencing rectal bleeding from your procedure yesterday. Your vital signs and physical exam were reassuring. We discussed utility of further diagnostic work-up in ER but joint decision made among myself, you and your to defer this at this time. Strict return precautions were discussed with you at length, if any concerning signs or symptoms present prior to outpatient follow-up please do not hesitate to come back for repeat evaluation. It was a pleasure to take care of you and I wish you the best going forward SHU NARVAEZ DO December 17, 2020 18:24
== END 2020-12-17 19:06 | disposition home or self-care (01) ==
LOC: ER 17:40
DX: K62.5 Hemorrhage of anus and rectum (principal); E11.9 Type 2 diabetes mellitus without complications; K21.9 Gastro-esophageal reflux disease without esophagitis; I10 Essential (primary) hypertension; E03.9 Hypothyroidism, unspecified; Z87.891 Personal history of nicotine dependence; Z90.710 Acquired absence of both cervix and uterus
CPT/HCPCS: 99281

== ENCOUNTER → 2021-01-15 | Outpatient (CLI) | payer OTHER ==
[2020-12-16 15:43] VITALS: BP 119/79
[~2021-01-15] MED LIST changes: +HYDR-2761 PO
[2021-01-15 12:16] LABS: BASO % 0 % (0-3); EOS # 0.1 x10^3/uL (0.0-0.7); EOS % 2 % (0-3); HEMATOCRIT 32.9 % (36.0-47.0); HEMOGLOBIN 10.9 g/dL (12.0-15.5); LYMPH # 1.2 x10^3/uL (1.0-4.8); LYMPH % 25 % (24-48); MEAN CORPUSCULAR HEMOGLOBIN 26 pg (25-35); MEAN CORPUSCULAR HGB CONC 33 g/dL (31-37); MEAN CORPUSCULAR VOLUME 77 fL (79-100); MONO # 0.6 x10^3/uL (0.0-1.1); MONO % 13 % (0-9); NEUT # 2.9 x10^3/uL (1.8-7.7); NEUT % 59 % (31-73); PLATELET COUNT 284 x10^3/uL (140-400); RED BLOOD COUNT 4.27 x10^6/uL (3.50-5.40); WHITE BLOOD COUNT 4.9 x10^3/uL (4.0-11.0)
[2021-01-15 12:32] LABS: ALBUMIN 3.8 g/dL (3.4-5.0); ALBUMIN/GLOBULIN RATIO 0.9 (1.0-1.7); CALCIUM 8.9 mg/dL (8.5-10.1); CREATININE 1.1 mg/dL (0.6-1.0); GFR 61.5; POTASSIUM 4.4 mmol/L (3.5-5.1); TOTAL BILIRUBIN 0.3 mg/dL (0.2-1.0); TOTAL PROTEIN 7.9 g/dL (6.4-8.2)
[2021-01-15 23:12] LABS: CREAT RD UR 46.9 mg/dL (Not Estab.); MICROALB RD UR 27.2 ug/mL (Not Estab.)
[2021-01-16 00:12] LABS: HEMOGLOBIN A1C 6.3 % (4.8-5.6)
== END ==
LOC: LAB 11:54
PROVIDERS: ATTEND Internal Medicine
DX: K55.9 Vascular disorder of intestine, unspecified (principal); E11.9 Type 2 diabetes mellitus without complications
CPT/HCPCS: 80053; 80061; 82043; 82570; 83036; 84443; 85025

== ENCOUNTER → 2021-01-17 | Outpatient (CLI) | payer OTHER ==
[2020-12-16 15:43] VITALS: BP 119/79
[~2021-01-17] MED LIST changes: +CONTRAST GIVEN. MC PRN; +IOHEXOL 240 MG/ML 50ML VIAL. PO ONE; +IOHEXOL 300 MG/ML 100ML VIAL. IV ONE
--- NOTE | 2021-01-17 14:51 | RAD ---
EXAMINATION: CT abdomen and pelvis with IV contrast. INDICATION:61 years, Female, abdominal pain, evaluate for colitis.. TECHNIQUE: Axial CT images of the abdomen and pelvis were obtained. Coronal and sagittal reformatted performed. COMPARISON: 11/20/2020. Exposure: One or more of the following individualized dose reduction techniques were utilized for thi s examination: 1. Automated exposure control 2. Adjustment of the mA and/or kV according to patient size 3. Use of iterative reconstruction technique. FINDINGS: LOWER CHEST: Right basilar subsegmental atelectasis. ABDOMEN/PELVIS: Normal morphology and size of the liver with homogeneous enhancement. No suspicious focal hepatic les ion. Unremarkable gallbladder and biliary ducts. Normal spleen. Mildly atrophic pancreas with fat inf iltration. No adrenal nodule. No hydronephrosis in either kidney. Unchanged 5 mm nonobstructing calcu mitra in the lower pole right kidney. No bowel obstruction or wall thickening. Normal appendix. LAP-BAND at the proximal stomach. Small hia kumar hernia. Previously seen hypodense focus in the cecum is no longer visualized which likely represe nting fecal material. Mild aortoiliac atherosclerotic calcifications without narrowing or dilation. M esenteric arteries and portal vein are patent. Circumaortic left renal vein. No lymphadenopathy in th e abdomen or pelvis by size criteria. No pneumoperitoneum or ascites. Similar ariana fat in the centra l small bowel mesentery with prominent mesenteric lymph nodes, nonspecific findings and can seen in m esenteric panniculitis. Unremarkable urinary bladder. Hysterectomy changes. No suspicious pelvic mass es.. MUSCULOSKELETAL: Postsurgical changes along the anterior abdominal wall. No acute osseous process or suspicious lesion . Mild degenerative changes in the lower lumbar spine. LAP-BAND valve seen in the subcutaneous tissue of the anterior abdominal wall. IMPRESSION: 1. No acute abnormality in the abdomen or pelvis. 2. Nonobstructing right nephrolithiasis. 3. Similar other chronic/incidental finding, as described above. Electronically signed by: Cong Cruz MD (01/17/2021 2:48 PM) [id number]
== END ==
LOC: CT 12:16
PROVIDERS: ATTEND Internal Medicine
DX: N20.0 Calculus of kidney (principal); K52.9 Noninfective gastroenteritis and colitis, unspecified; J98.11 Atelectasis
CPT/HCPCS: 74177; Q9966; Q9967

== ENCOUNTER 2021-01-19 22:59 | Emergency (ER) | payer OTHER ==
[~2021-01-19] VITALS: Ht 162.6 cm; Wt 91.4 kg
[~2021-01-19 22:59] MED LIST changes: -CONTRAST GIVEN. MC PRN; -HYDR-2761 PO; -IOHEXOL 240 MG/ML 50ML VIAL. PO ONE; -IOHEXOL 300 MG/ML 100ML VIAL. IV ONE
--- NOTE | 2021-01-19 23:49 | PHYS DOC ---
Past Medical History Past Medical History: Diabetes-Type II, Hypertension Past Surgical History: No Surgical History Additional Past Surgical Histo: lap band Smoking Status: Never Smoker Alcohol Use: Rarely Drug Use: None General Adult EDM: Chief Complaint: ABDOMINAL PAIN HPI: HPI: Patient is a 61 year old female presents with a chief complaint of abdominal and pelvic cramping. She states she has had abdominal pain on and off since November. Patient has been evaluated by primary care physician who is ordered CT imaging and labs. Patient was evaluated by GI and an upper and lower scope. Tonight patient had return of abdominal cramping. Cramping is located in the l ower abdomen. Patient states at that she used the restroom and had blood in stool. Review of Systems: Review of Systems: Constitutional: Denies fever or chills. [] Eyes: Denies change in visual acuity. [] HENT: Denies nasal congestion or sore throat. [] Respiratory: Denies cough or shortness of breath. [] Cardiovascular: Denies chest pain or edema. [] GI: Denies abdominal pain, nausea, vomiting, bloody stools or diarrhea. [] : Denies dysuria. [positive vaginal bleeding] Musculoskeletal: Denies back pain or joint pain. [] Integument: Denies rash. [] Neurologic: Denies headache, focal weakness or sensory changes. [] Endocrine: Denies polyuria or polydipsia. [] Lymphatic: Denies swollen glands. [] Psychiatric: Denies depression or anxiety. [] Heart Score: C/O Chest Pain: N/A Risk Factors: Risk Factors: DM, Current or recent (<one month) smoker, HTN, HLP, family history of CAD, obesity. Risk Scores: Score 0 - 3: 2.5% MACE over next 6 weeks - Discharge Home Score 4 - 6: 20.3% MACE over next 6 weeks - Admit for Clinical Observation Score 7 - 10: 72.7% MACE over next 6 weeks - Early Invasive Strategies Allergies: Allergies: Allergies Coded Allergies Type Severity Reaction Last Updated Verified No Known Drug Allergies 12/16/20 No Physical Exam: PE: General: alert, no acute distress. Skin: warm, dry and intact. Head:: Normocephalic, atraumatic. Neck: Trachea midline. Eyes: EOMI, Normal conjunctiva, No drainage CARDIOVASCULAR: Regular rate and rhythm RESPIRATORY: No respiratory distress Back: Full range of motion. MUSCULOSKELETAL: Full range of motion of bilateral upper and lower extremities. GASTROINTESTINAL: Abdomen soft without rebound or guarding. NEUROLOGICAL: Alert and noted to person, place and time. No neurological deficits observed Psychiatric: Cooperative. Normal judgment -pelvic exam performed with filler and trimmer present external exam normal with no lesions abnormalities, pelvic exam no blood no masses EKG: EKG: [] Radiology/Procedures: Radiology/Procedures: [] Impression: LOWER CHEST: Right basilar subsegmental atelectasis. ABDOMEN/PELVIS: Normal morphology and size of the liver with homogeneous enhancement. No suspicious focal hepatic lesion. Unremarkable gallbladder and biliary ducts. Normal spleen. Mildly atrophic pancreas with fat infiltration. No adrenal nodule. No hydronephrosis in either kidney. Unchanged 5 mm nonobstructing calculus in the lower pole right kidney. No bowel obstruction or wall thickening. Normal appendix. LAP-BAND at the proximal stomach. Small hiatal hernia. Previously seen hypodense focus in the cecum is no longer visualized which likely representing fecal material. Mild aortoiliac atherosclerotic calcifications without narrowing or dilation. Mesenteric arteries and portal vein are patent. Circumaortic left renal vein. No lymphadenopathy in the abdomen or pelvis by size criteria. No pneumoperitoneum or ascites. Similar ariana fat in the central small bowel mesentery with promi nent mesenteric lymph nodes, nonspecific findings and can seen in mesenteric panniculitis. Unremarkable urinary bladder. Hysterectomy changes. No suspicious pelvic masses.. MUSCULOSKELETAL: Postsurgical changes along the anterior abdominal wall. No acute osseous process or suspicious lesion. Mild degenerative changes in the lower lumbar spine. LAP- BAND valve seen in the subcutaneous tissue of the anterior abdominal wall. IMPRESSION: 1. No acute abnormality in the abdomen or pelvis. 2. Nonobstructing right nephrolithiasis. 3. Similar other chronic/incidental finding, as described above. Course & Med Decision Making: Course & Med Decision Making Pertinent Labs and Imaging studies reviewed. (See chart for details) [] León Disclaimer: León Disclaimer: This electronic medical record was generated, in whole or in part, using a voice recognition dictation system. Departure Departure Impression: Primary Impression: Abdominal pain Additional Impressions: Vaginal bleeding Pelvic pain Disposition: HOME / SELF CARE / HOMELESS Condition: STABLE Referrals: PAUL LUNA MD (PCP) Patient Instructions: Pelvic Pain, Female Scripts Hydrocodone Bit/Acetaminophen (HYDROCODONE-APAP 5-325 ) 1 Tab Tablet 1 TAB PO PRN Q6HRS PRN for PAIN, #14 TAB 0 Refills Prov: GREGORY BRAUN DO 01/20/21 GREGORY BRAUN DO Jan 19, 2021 23:49
[2021-01-19 23:56] LABS: BILIRUBIN,URINE NEGATIVE (NEG); CLARITY,URINE CLEAR; COLOR,URINE YELLOW; NITRITE,URINE NEGATIVE (NEG); PH,URINE 5.5 (<5.0-8.0); PROTEIN,URINE NEGATIVE (NEG-TRACE); UROBILINOGEN,URINE 0.2 mg/dL (0.2 mg/dL)
[2021-01-20] MEDS ORDERED: MORPHINE SULFATE 2 MG/ML VIAL. IV ONE
[2021-01-20 00:01] LABS: BASO # 0.1 x10^3/uL (0.0-0.2); BASO % 1 % (0-3); EOS # 0.2 x10^3/uL (0.0-0.7); EOS % 3 % (0-3); HEMATOCRIT 31.6 % (36.0-47.0); HEMOGLOBIN 10.2 g/dL (12.0-15.5); LYMPH # 1.4 x10^3/uL (1.0-4.8); LYMPH % 26 % (24-48); MEAN CORPUSCULAR HEMOGLOBIN 25 pg (25-35); MEAN CORPUSCULAR HGB CONC 32 g/dL (31-37); MEAN CORPUSCULAR VOLUME 77 fL (79-100); MONO # 0.6 x10^3/uL (0.0-1.1); MONO % 10 % (0-9); NEUT # 3.4 x10^3/uL (1.8-7.7); NEUT % 60 % (31-73); PLATELET COUNT 269 x10^3/uL (140-400); RED BLOOD COUNT 4.11 x10^6/uL (3.50-5.40); WHITE BLOOD COUNT 5.6 x10^3/uL (4.0-11.0)
[2021-01-20 00:08] LABS: CALCIUM 9.3 mg/dL (8.5-10.1); CREATININE 1.4 mg/dL (0.6-1.0); GFR 46.6; POTASSIUM 3.6 mmol/L (3.5-5.1)
[2021-01-20 00:11] LABS: BACTERIA,URINE 0 /HPF (0-FEW); RBC,URINE RARE /HPF (0-2); WBC,URINE RARE /HPF (0-4)
[2021-01-20 00:14] LABS: ALBUMIN 3.8 g/dL (3.4-5.0); TOTAL BILIRUBIN 0.2 mg/dL (0.2-1.0); TOTAL PROTEIN 7.7 g/dL (6.4-8.2)
[2021-01-20] MEDS ORDERED: IV NORMAL SALINE 1000ML BAG 1,000 ML IV ONE (01:00)
[2021-01-20] MEDS ORDERED: HYDR-2761 PO (02:19)
[2021-01-20 02:24] VITALS: BP 172/93
== END 2021-01-20 02:40 | disposition home or self-care (01) ==
LOC: ER 22:59
DX: N93.9 Abnormal uterine and vaginal bleeding, unspecified (principal); R10.30 Lower abdominal pain, unspecified; R10.2 Pelvic and perineal pain; E11.9 Type 2 diabetes mellitus without complications; I10 Essential (primary) hypertension
CPT/HCPCS: 36415; 80053; 81001; 85025; 96361; 96374; 99285; J2270; J7030

== ENCOUNTER → 2021-02-21 | Outpatient (CLI) | payer OTHER ==
[~2021-02-21] MED LIST changes: +HYDR-2761 PO
--- NOTE | 2021-02-24 07:42 | KCIC ---
Procedure: 2-D and 3-D bilateral screening mammogram. Bilateral mammograms in CC and oblique projections were obtained with 2-D imaging and 3-D tomosynthes is imaging and reviewed on the workstation. COMPARISON: Mammogram 04/21/2018 FINDINGS: Breast density: The breasts are heterogeneously dense, which may obscure small masses. No suspicious breast mass, malignant-appearing calcifications, or architectural distortion seen. IMPRESSION: No evidence of malignancy. ASSESSMENT: BI-RADS 1 Recommendation: Routine annual screening mammograms. The patient receive a letter with the results in the mail. She will be entered entered into the [employer] reminder system with target recall date for the next screening mammogram. The patient will rec eive femoral reminder letter. Electronically signed by: Edith Dunlap MD (02/24/2021 7:40 AM) [id number]
== END ==
LOC: KCIC MAMMO 12:19
PROVIDERS: ATTEND Internal Medicine
DX: Z12.31 Encounter for screening mammogram for malignant neoplasm of breast (principal)
CPT/HCPCS: 77063; 77067

== ENCOUNTER → 2021-06-03 | Outpatient (CLI) | payer OTHER ==
--- NOTE | 2021-06-03 12:38 | KCIC ---
2 views of the abdomen 06/03/2021 INDICATION: Evaluate for retained endoscopy capsule Discussion: No evidence of bowel obstruction is identified. No gross pneumoperitoneum is seen. Gastri c band noted to be in place. Visualized portions of the catheter intact. No acute osseous abnormaliti es identified. IMPRESSION: 1. Nonvisualization of an endoscopy capsule. 2. No acute intra-abdominal abnormality is identified Electronically signed by: Victoriano Fitzgerald MD (06/03/2021 12:36 PM) [id number]
== END ==
LOC: KCIC 09:22
PROVIDERS: ATTEND Internal Medicine
DX: D50.9 Iron deficiency anemia, unspecified (principal)
CPT/HCPCS: 74018

== ENCOUNTER → 2021-09-15 | Outpatient (CLI) | payer OTHER ==
[2021-09-15 08:17] LABS: BASO % 1 % (0-3); EOS # 0.1 x10^3/uL (0.0-0.7); EOS % 4 % (0-3); HEMATOCRIT 32.8 % (36.0-47.0); HEMOGLOBIN 10.4 g/dL (12.0-15.5); LYMPH # 1.2 x10^3/uL (1.0-4.8); LYMPH % 30 % (24-48); MEAN CORPUSCULAR HEMOGLOBIN 25 pg (25-35); MEAN CORPUSCULAR HGB CONC 32 g/dL (31-37); MEAN CORPUSCULAR VOLUME 79 fL (79-100); MONO # 0.5 x10^3/uL (0.0-1.1); MONO % 12 % (0-9); NEUT # 2.2 x10^3/uL (1.8-7.7); NEUT % 54 % (31-73); PLATELET COUNT 244 x10^3/uL (140-400); RED BLOOD COUNT 4.17 x10^6/uL (3.50-5.40); WHITE BLOOD COUNT 4.1 x10^3/uL (4.0-11.0)
[2021-09-15 09:05] LABS: ALBUMIN 3.5 g/dL (3.4-5.0); ALBUMIN/GLOBULIN RATIO 0.8 (1.0-1.7); CALCIUM 8.5 mg/dL (8.5-10.1); CREATININE 0.9 mg/dL (0.6-1.0); GFR 77.5; POTASSIUM 3.4 mmol/L (3.5-5.1); TOTAL BILIRUBIN 0.3 mg/dL (0.2-1.0); TOTAL PROTEIN 7.8 g/dL (6.4-8.2)
[2021-09-16 01:11] LABS: CREAT RD UR 97.8 mg/dL (Not Estab.); HEMOGLOBIN A1C 5.7 % (4.8-5.6); MICROALB RD UR 15.3 ug/mL (Not Estab.)
== END ==
LOC: LAB 07:37
PROVIDERS: ATTEND Internal Medicine
DX: E11.9 Type 2 diabetes mellitus without complications (principal); E11.69 Type 2 diabetes mellitus with other specified complication
CPT/HCPCS: 80053; 80061; 82043; 82570; 83036; 84443; 85025